=== PATIENT | male | born 1970 | race Two or more races ===

== ENCOUNTER 2024-05-17 15:21 | Emergency (ER) | payer OTHER ==
[~2024-05-17] VITALS: Ht 180.3 cm; Wt 83.9 kg
[2024-05-17 16:19] VITALS: BP 126/81; TEMP 98.3; O2SAT 99
== END 2024-05-17 16:19 ==
LOC: ER 15:33
DX: R06.02 Shortness of breath (principal); J45.909 Unspecified asthma, uncomplicated; G40.909 Epilepsy, unspecified, not intractable, without status epilepticus; Z59.00 Homelessness unspecified